=== PATIENT | female | born 1985 | race Caucasian/White ===

== ENCOUNTER 2023-03-04 19:56 | Emergency (ER) | payer OTHER ==
--- NOTE | 2023-03-04 20:10 | ERPHSYRPT ---
- History of Present Illness Time Seen by Provider: 03/04/23 20:09 Historian: patient Exam Limitations: no limitations Physician History: This is a 37-year-old white female patient of primary care provider Dr. Padilla and manager universal Dr. Jane. Patient is 30 weeks . She has no cardiac history and no pulmonary history. However, she had sudden, severe somewhat unrelenting substernal, central, nonradiating chest pain 2 hours prior to arrival. Patient's mother was just diagnosed with a pulmonary embolus. The mother found out she was factor V deficient. this patient has outpatient orders for Hegemann factor XII and factor V levels to be drawn. There is a concern for a pulmonary embolus. I did speak to the patient's manager universal, Dr. Jane. He stated that if it was necessary to perform a CAT scan of the chest with contrast then to go ahead and have that study performed. I informed the patient and her spouse that there are risks involved with this study but it is a risk-benefit issue. We need to be aware whether or not the patient is having a myocardial infarction or pulmonary embolus. Timing/Duration: today, hour(s) (Sudden onset severe chest pain unrelenting) Activities at Onset: none Quality: sharpness, stabbing Location: substernal, central Chest Pain Radiation: no radiation Severity of Pain-Max: moderate Severity of Pain-Current: moderate Associated Symptoms: denies symptoms, No shortness of breath Prior Chest Pain/Cardiac Workup: no prior chest pain, no prior cardiac workup Nitro Today/Relief: no nitro taken today Aspirin Treatment Today: no aspirin today Allergies/Adverse Reactions: No Known Drug Allergies Allergy (Unverified 02/26/23 10:52) Home Medications: Vit No.129/Iron/Folic [ Tablet] 1 each PO DAILY 01/23/23 [History] Vitamin E 268 mg PO DAILY 01/23/23 [History] Travel Risk - International Travel Have you traveled outside of the country in past 3 weeks: No - Coronavirus Screening Are you exhibiting any of the following symptoms?: No Close contact with a COVID-19 positive Pt in past 14-21 Days: No - Vaccine Status Have you recieved a Covid-19 vaccination: Yes Director Of Entertainment: Unknown - Vaccination Dates Dates if Unknown: uknown - Review of Systems Constitutional: No Symptoms Eyes: No Symptoms Ears, Nose, & Throat: No Symptoms Respiratory: No Symptoms Cardiac: Chest Pain Abdominal/Gastrointestinal: No Symptoms Genitourinary Symptoms: No Symptoms Musculoskeletal: Other (Left lower leg pain) Skin: No Symptoms Neurological: No Symptoms Psychological: No Symptoms Endocrine: No Symptoms Hematologic/Lymphatic: No Symptoms Immunological/Allergic: No Symptoms All Other Systems: Reviewed and Negative - Past Medical History Pertinent Past Medical History: Yes - Past Surgical History Past Surgical History: Yes - Social History Smoking Status: Never smoker - Nursing Vital Signs Nursing Vital Signs: Initial Vital Signs Temperature 97.8 F 03/04/23 20:00 Pulse Rate 73 03/04/23 20:00 Respiratory Rate 15 03/04/23 20:00 Blood Pressure 105/70 03/04/23 20:00 O2 Sat by Pulse Oximetry 99 03/04/23 20:00 Pain Scale Pain Intensity 3 - Physical Exam General Appearance: mild distress, alert, anxiety Eye Exam: PERRL/EOMI, eyes nml inspection Ears, Nose, Throat Exam: normal ENT inspection, moist mucous membranes Neck Exam: normal inspection, non-tender, supple, carotid bruit Respiratory Exam: normal breath sounds, chest tenderness, lungs clear, airway intact, No respiratory distress Cardiovascular Exam: regular rate/rhythm, normal heart sounds, normal peripheral pulses Gastrointestinal/Abdomen Exam: soft, normal bowel sounds, No tenderness Pelvic Exam: not done Rectal Exam: not done Back Exam: normal inspection, normal range of motion, No CVA tenderness, No vertebral tenderness Extremity Exam: normal inspection, normal range of motion, pelvis stable Neurologic Exam: alert, oriented x 3, cooperative, schedule maker II-XII nml as tested, normal mood/affect, nml cerebellar function, nml station & gait, sensation nml Skin Exam: normal color, warm, dry Lymphatic Exam: No adenopathy SpO2 Interpretation: normal O2 Delivery: Room Air - Course Nursing assessment & vital signs reviewed: Yes EKG Interpreted by Me: RATE (75), Sinus Rhythm, NORMAL AXIS, NORMAL INTERVALS, NORMAL QRS, NORMAL ST-T, Other (No acute ischemia on today's twelve-lead EKG) Ordered Tests: Active Orders 24 hr Category Date Time Status EKG-ER Only STAT Care 03/04/23 20:22 Active IV Insertion STAT Care 03/04/23 20:22 Active Pulse Oximetry (ED) STAT Care 03/04/23 20:22 Active CHEST WITH CONTRAST [CT] Stat Exams 03/04/23 20:23 Completed VENOUS UNILAT/LIMITED EXTREMIT [US] Stat Exams 03/04/23 21:28 Taken CBC W DIFF Stat Lab 03/04/23 20:30 Completed CMP Stat Lab 03/04/23 20:30 Completed D-DIMER QUANTITATIVE Stat Lab 03/04/23 20:30 Completed TROPONIN Q4H Lab 03/04/23 20:30 Completed TROPONIN Q4H Lab 03/05/23 00:30 Ordered TROPONIN Q4H Lab 03/05/23 04:30 Ordered UA W/RFX UR CULTURE Stat Lab 03/04/23 21:49 Completed Medication Summary Generic Name Dose Route Start Last Admin Trade Name Freq PRN Reason Stop Dose Admin Sodium Chloride 1,000 mls @ 100 mls/hr 03/04/23 20:30 03/04/23 20:39 Sodium Chloride 0.9% 1000 Ml IV 04/03/23 20:29 100 mls/hr .Q10H ANTONIA Administration Lab/Rad Data: Laboratory Result Diagrams 03/04/23 20:30 03/04/23 20:30 Laboratory Results 03/04/23 03/04/23 03/04/23 Range/Units 21:49 20:30 20:30 WBC (4.0-10.5) x10^3/uL RBC (4.1-5.4) x10^6/uL Hgb (12.0-16.0) g/dL Hct (35-47) % MCV (78-100) fL MCH (26-32) pg MCHC (32-36) g/dL RDW (11.5-14.0) % Plt Count (150-450) x10^3/uL MPV (7.5-11.0) fL Gran % (36.0-66.0) % Immature Gran % (Auto) (0.00-0.4) % Nucleat RBC Rel Count (0.00-0.1) % Eos # (Auto) (0-0.5) x10^3/uL Immature Gran # (Auto) (0.00-0.03) x10^3u/L Absolute Lymphs (auto) (1.0-4.6) x10^3/uL Absolute Monos (auto) (0.0-1.3) x10^3/uL Absolute Nucleated RBC (0.00-0.01) x10^3u/L Lymphocytes % (24.0-44.0) % Monocytes % (0.0-12.0) % Eosinophils % (0.00-5.0) % Basophils % (0.0-0.4) % Absolute Granulocytes (1.4-6.9) x10^3/uL Basophils # (0-0.4) x10^3/uL D-Dimer 1.06 H* (0.0-0.50) mg/L Sodium (137-145) mmol/L Potassium (3.5-5.1) mmol/L Chloride (98-107) mmol/L Carbon Dioxide (22-30) mmol/L Anion Gap (5-15) MEQ/L BUN (7-17) mg/dL Creatinine (0.52-1.04) mg/dL Estimated GFR ML/MIN Glucose (74-106) mg/dL Calcium (8.4-10.2) mg/dL Total Bilirubin (0.2-1.3) mg/dL AST (14-36) U/L ALT (0-35) U/L Alkaline Phosphatase (38-126) U/L Troponin I < 0.012 (0.000-0.034) ng/mL Serum Total Protein (6.3-8.2) g/dL Albumin (3.5-5.0) g/dL Urine Color Yellow (Yellow) Urine Appearance Clear (Clear) Urine pH 6.5 (4.6-8.0) Ur Specific [place] 1.010 (1.005-1.030) Urine Protein Negative (Negative) Urine Glucose (UA) Negative (Negative) mg/dL Urine Ketones Trace A (Negative) Urine Blood Negative (Negative) Urine Nitrite Negative (Negative) Urine Bilirubin Negative (Negative) Urine Urobilinogen 0.2 (0.2) mg/dL Ur Leukocyte Esterase Negative (Negative) U Hyaline Cast (Auto) NONE SEEN (0-2) /LPF Urine Microscopic RBC 0-2 (0-5) /HPF Urine Microscopic WBC 0-2 (0-5) /HPF Ur Epithelial Cells None Seen (None Seen) /HPF Urine Bacteria None Seen (None Seen) /HPF Urine Culture Reflexed NO (NO) 03/04/23 03/04/23 Range/Units 20:30 20:30 WBC 14.1 H (4.0-10.5) x10^3/uL RBC 3.94 L (4.1-5.4) x10^6/uL Hgb 10.2 L (12.0-16.0) g/dL Hct 33.3 L (35-47) % MCV 84.5 (78-100) fL MCH 25.9 L (26-32) pg MCHC 30.6 L (32-36) g/dL RDW 14.3 H (11.5-14.0) % Plt Count 297 (150-450) x10^3/uL MPV 8.7 (7.5-11.0) fL Gran % 71.7 H (36.0-66.0) % Immature Gran % (Auto) 0.7 H (0.00-0.4) % Nucleat RBC Rel Count 0.0 (0.00-0.1) % Eos # (Auto) 0.28 (0-0.5) x10^3/uL Immature Gran # (Auto) 0.10 H (0.00-0.03) x10^3u/L Absolute Lymphs (auto) 2.77 (1.0-4.6) x10^3/uL Absolute Monos (auto) 0.80 (0.0-1.3) x10^3/uL Absolute Nucleated RBC 0.00 (0.00-0.01) x10^3u/L Lymphocytes % 19.7 L (24.0-44.0) % Monocytes % 5.7 (0.0-12.0) % Eosinophils % 2.0 (0.00-5.0) % Basophils % 0.2 (0.0-0.4) % Absolute Granulocytes 10.09 H (1.4-6.9) x10^3/uL Basophils # 0.03 (0-0.4) x10^3/uL D-Dimer (0.0-0.50) mg/L Sodium 135 L (137-145) mmol/L Potassium 4.1 (3.5-5.1) mmol/L Chloride 104 (98-107) mmol/L Carbon Dioxide 20 L (22-30) mmol/L Anion Gap 14.7 (5-15) MEQ/L BUN 5 L (7-17) mg/dL Creatinine 0.43 L (0.52-1.04) mg/dL Estimated GFR > 60.0 ML/MIN Glucose 77 (74-106) mg/dL Calcium 8.2 L (8.4-10.2) mg/dL Total Bilirubin 0.50 (0.2-1.3) mg/dL AST 30 (14-36) U/L ALT 17 (0-35) U/L Alkaline Phosphatase 71 (38-126) U/L Troponin I (0.000-0.034) ng/mL Serum Total Protein 7.4 (6.3-8.2) g/dL Albumin 3.7 (3.5-5.0) g/dL Urine Color (Yellow) Urine Appearance (Clear) Urine pH (4.6-8.0) Ur Specific [place] (1.005-1.030) Urine Protein (Negative) Urine Glucose (UA) (Negative) mg/dL Urine Ketones (Negative) Urine Blood (Negative) Urine Nitrite (Negative) Urine Bilirubin (Negative) Urine Urobilinogen (0.2) mg/dL Ur Leukocyte Esterase (Negative) U Hyaline Cast (Auto) (0-2) /LPF Urine Microscopic RBC (0-5) /HPF Urine Microscopic WBC (0-5) /HPF Ur Epithelial Cells (None Seen) /HPF Urine Bacteria (None Seen) /HPF Urine Culture Reflexed (NO) - Progress Progress: improved, re-examined Air Movement: good Progress Note: 03/04/23 20:31 The risk of kidney injury and injury to baby and possible early delivery and possible complications with the delivery after the CT scan of the chest with contrast is very low. The benefit of the procedure is to determine if she has a pulmonary embolus or DVT we can treat this early. The patient and spouse have opted for CT scan of the chest with contrast. If the D-dimer is elevated we will also order venous Doppler of the left lower extremity. 03/04/23 22:38 Venous Doppler left lower extremity is negative for DVT. This impression was reported to me by the textile technologist. 03/05/23 00:01 CT scan of the chest with contrast shows no acute cardiopulmonary process. There is no acute thromboembolus. There is no evidence of infiltrate or pneumonia. This patient's medical issue is 1 of moderate complexity. The level of complexity and the work-up performed is based on the review of the patient's past medical history, review of the patient's medication list, review of the patient's drug allergy list, history of present illness and findings on examination. The intravenous line was placed, patient provided with normal saline solution, CBC CMP, twelve-lead EKG, urinalysis, troponin level and D- dimer levels were drawn. The patient had an elevated D-dimer level and we performed a venous Doppler which is negative for DVT in her left lower extremity. CTA of her chest is also negative for any acute cardiopulmonary process. Specifically there are no pneumonias and no pulmonary emboli. Patient will be discharged home with instructions to follow-up with her OB physician as well as her primary care provider. Blood Culture(s) Obtained: No Discussed with : Thomas Counseled pt/family regarding: lab results, diagnosis, rad results Medical Desision Making - Independent Historian Additional History obtained from: Spouse - Discussion of managment Agreed on:: Treatment plan, need for follow-up - Diagnostic Testing Diagnostic test were ordered, analyzed, and reviewed by me: Yes Radiological Interpretation: Reviewed by me, Teleradiologist Report - Risk of complications Minimal Risk: Minimal risk of morbidity - Departure Departure Disposition: Home Clinical Impression: Chest pain during Condition: Stable Critical Care Time: No Referrals: SHAUNA BELL DO [ACTIVE STAFF] - Follow up/PCP as directed Additional Instructions: Use Tylenol for pain control. Follow-up with your records supervisor and primary care provider later today on 03/05/2023 to make arrangements for further evaluation and management.
[2023-03-04] MEDS ORDERED: Sodium Chloride 0.9% 1000 ML 1,000 ML IV SCH (20:30)
[2023-03-04] MEDS ORDERED: Sodium Chloride 0.9% 1000 ML 1,000 ML ONE (20:38)
[2023-03-04 20:50] LABS: Absolute Neutrophil Ct (ANC) 10.09 x10^3/uL (1.4-6.9); BASOPHIL % 0.2 % (0.0-0.4); Basophil (Absolute #) 0.03 x10^3/uL (0-0.4); Eosinophil (Absolute #) 0.28 x10^3/uL (0-0.5); Hematocrit 33.3 % (35-47); Hemoglobin 10.2 g/dL (12.0-16.0); IMMATURE GRAN % 0.7 % (0.00-0.4); Lymphocyte (Absolute #) 2.77 x10^3/uL (1.0-4.6); Lymphocytes % 19.7 % (24.0-44.0); Mean Cell Volume 84.5 fL (78-100); Mean Corpuscular Hemoglobin 25.9 pg (26-32); Mean Corpuscular Hgb Concent. 30.6 g/dL (32-36); Mean Platelet Volume 8.7 fL (7.5-11.0); Monocytes % 5.7 % (0.0-12.0); Neutrophil % 71.7 % (36.0-66.0); Platelet Count 297 x10^3/uL (150-450); Red Blood Count 3.94 x10^6/uL (4.1-5.4); Red Cell Distribution Width 14.3 % (11.5-14.0); White Blood Count 14.1 x10^3/uL (4.0-10.5)
[2023-03-04 21:04] LABS: ALBUMIN 3.7 g/dL (3.5-5.0); ALKALINE PHOSPHATASE 71 U/L (38-126); ANION GAP 14.7 MEQ/L (5-15); BLOOD UREA NITROGEN 5 mg/dL (7-17); CHLORIDE 104 mmol/L (98-107); Calcium 8.2 mg/dL (8.4-10.2); Carbon Dioxide 20 mmol/L (22-30); Creatinine 1 0.43 mg/dL (0.52-1.04); EST GLOMERULAR FILTRATION RATE > 60.0 ML/MIN; Glucose 77 mg/dL (74-106); Potassium 4.1 mmol/L (3.5-5.1); SGOT/AST 30 U/L (14-36); SGPT/ALT 17 U/L (0-35); SODIUM 135 mmol/L (137-145); Total Protein 7.4 g/dL (6.3-8.2)
[2023-03-04 21:57] LABS: Appearance Clear (Clear); Bacteria None Seen /HPF (None Seen); Bilirubin Negative (Negative); Blood Negative (Negative); Epithelial Cells None Seen /HPF (None Seen); Glucose, Urine Negative (Negative); Hyaline Casts NONE SEEN /LPF (0-2); Ketones Trace (Negative); Leukocyte Esterase Negative (Negative); Nitrite Negative (Negative); Ph 6.5 (4.6-8.0); Protein,Urine Dip Negative (Negative); RBC 0-2 /HPF (0-5); Urobilinogen 0.2 mg/dL (0.2); WBC 0-2 /HPF (0-5)
[2023-03-04 22:07] LABS: ADD URINE CULTURE? NO (NO)
[2023-03-04 22:32] VITALS: O2SAT 97
--- NOTE | 2023-03-04 23:05 | XRAY ---
CLINICAL HISTORY:Chest pain; COMPARISON:None; TECHNIQUES:Contiguous 3.[address] images of the chest were acquired with administration of intravenous contrast. 80 cc Isovue 370 was given as IV contrast. Coronal and sagittal reconstructions were obtained. CTDI: 71.64 mGy, DLP: 853 mGy*cm; FINDINGS: The pulmonary trunk, right and left pulmonary arteries appear unremarkable. No evidence of filling defect in segmental or subsegmental branches on either side. The scanned pulmonary parenchyma shows no definite consolidative lesions. No free or encysted pleural effusion. Heart size is normal, and there is no pericardial effusion. No pathologically enlarged mediastinal, hilar or axillary lymph node identified. There is no definite mass lesion in the chest wall. Scanned upper abdomen is unremarkable. IMPRESSION: Negative study for acute thromboembolism. Electronically Signed by: Nj Peters MD. (03/04/2023 22:03:11 VIDEO GAMES STORYWRITER)
[2023-03-05 00:05] VITALS: BP 91/55; PULSE 78
--- NOTE | 2023-03-05 08:38 | XRAY ---
Indication: Pain. Elevated d-dimer. Two-dimensional sonogram and color Doppler imaging of the major venous vessels of the left leg performed. Comparison: None No thrombus seen in the examined deep venous vessels of the left leg including greater saphenous vein. Veins demonstrate normal compressibility. Venous waveforms are normal with and without augmentation. Impression: Left leg negative for DVT. Comment: Preliminary report was given.
[2023-03-07 08:01] LABS: Factor V Activity 97 % (70-150)
== END 2023-03-05 00:25 | disposition home or self-care (01) ==
LOC: ED 19:56
DX: R07.9 Chest pain, unspecified (principal); Z33.1 Pregnant state, incidental; Z83.2 Family history of diseases of the blood and blood-forming organs and certain disorders involving the immune mechanism; R79.1 Abnormal coagulation profile
CPT/HCPCS: 36000; 36415; 71260; 80053; 81001; 84484; 85025; 85220; 85280; 85335; 85379; 85610; 85730; 93005; 93971; 94760; 99284

== ENCOUNTER 2023-04-21 14:19 | Observation (INO) | payer OTHER ==
[2023-04-21 14:53] VITALS: BP 133/72; PULSE 78
[2023-04-21 15:39] LABS: Appearance Clear (Clear); Bacteria None Seen /HPF (None Seen); Bilirubin Negative (Negative); Blood Negative (Negative); Epithelial Cells None Seen /HPF (None Seen); Glucose, Urine Negative (Negative); Hyaline Casts NONE SEEN /LPF (0-2); Ketones Negative (Negative); Leukocyte Esterase Negative (Negative); Nitrite Negative (Negative); Ph 6.5 (4.6-8.0); Protein,Urine Dip Negative (Negative); RBC 0-2 /HPF (0-5); Urobilinogen 0.2 mg/dL (0.2); WBC 0-2 /HPF (0-5)
[2023-04-21 15:44] LABS: ADD URINE CULTURE? NO (NO)
[2023-04-21 15:47] LABS: Amphetamine,Urine NEGATIVE (NEGATIVE); Barbiturate,Urine NEGATIVE (NEGATIVE); Benzodiazepine,Urine NEGATIVE (NEGATIVE); Cocaine,Urine NEGATIVE (NEGATIVE); Methadone,Urine NEGATIVE (NEGATIVE); Opiate,Urine NEGATIVE (NEGATIVE); PCP,Urine NEGATIVE (NEGATIVE); THC,Urine NEGATIVE (NEGATIVE)
== END 2023-04-21 16:25 | disposition home or self-care (01) ==
LOC: OB 14:19
PROVIDERS: ADMIT Obstetrics & Gynecology; ATTEND Obstetrics & Gynecology
DX: Z34.83 Encounter for supervision of other normal pregnancy, third trimester (principal); Z3A.37 37 weeks gestation of pregnancy
CPT/HCPCS: 80307; 81001; 84112; G0378; G0379

== ENCOUNTER 2023-04-29 06:30 | Inpatient (IN) | payer OTHER ==
[2023-04-29] MEDS ORDERED: Zofran 4 MG/2 ML VIAL IV PRN (20:55)
[2023-04-29] MEDS ORDERED: STADOL 2 MG IV PRN (20:55)
[2023-04-29 21:27] LABS: Absolute Neutrophil Ct (ANC) 7.49 x10^3/uL (1.4-6.9); BASOPHIL % 0.2 % (0.0-0.4); Basophil (Absolute #) 0.02 x10^3/uL (0-0.4); Eosinophil % 1.5 % (0.00-5.0); Eosinophil (Absolute #) 0.16 x10^3/uL (0-0.5); Hematocrit 31.1 % (35-47); Hemoglobin 9.3 g/dL (12.0-16.0); IMMATURE GRAN # 0.07 x10^3u/L (0.00-0.03); IMMATURE GRAN % 0.7 % (0.00-0.4); Lymphocyte (Absolute #) 2.17 x10^3/uL (1.0-4.6); Lymphocytes % 20.7 % (24.0-44.0); Mean Cell Volume 77.2 fL (78-100); Mean Corpuscular Hemoglobin 23.1 pg (26-32); Mean Corpuscular Hgb Concent. 29.9 g/dL (32-36); Mean Platelet Volume 9.4 fL (7.5-11.0); Monocyte (Absolute #) 0.56 x10^3/uL (0.0-1.3); Monocytes % 5.3 % (0.0-12.0); Neutrophil % 71.6 % (36.0-66.0); Platelet Count 215 x10^3/uL (150-450); Red Blood Count 4.03 x10^6/uL (4.1-5.4); Red Cell Distribution Width 16.2 % (11.5-14.0); White Blood Count 10.5 x10^3/uL (4.0-10.5)
[2023-04-29 21:38] LABS: ADD URINE CULTURE? NO (NO); Appearance Clear (Clear); Bacteria None Seen /HPF (None Seen); Bilirubin Negative (Negative); Blood Negative (Negative); Epithelial Cells None Seen /HPF (None Seen); Glucose, Urine Negative (Negative); Hyaline Casts NONE SEEN /LPF (0-2); Ketones Negative (Negative); Leukocyte Esterase Negative (Negative); Nitrite Negative (Negative); Protein,Urine Dip Trace (Negative); RBC 0-2 /HPF (0-5); Urobilinogen 0.2 mg/dL (0.2); WBC 0-2 /HPF (0-5)
[2023-04-29 21:49] LABS: Amphetamine,Urine NEGATIVE (NEGATIVE); Barbiturate,Urine NEGATIVE (NEGATIVE); Benzodiazepine,Urine NEGATIVE (NEGATIVE); Cocaine,Urine NEGATIVE (NEGATIVE); Methadone,Urine NEGATIVE (NEGATIVE); Opiate,Urine NEGATIVE (NEGATIVE); PCP,Urine NEGATIVE (NEGATIVE); THC,Urine NEGATIVE (NEGATIVE)
[2023-04-29 22:16] LABS: ABO TYPING A; Antibody Screen NEGATIVE (NEGATIVE); RH TYPING POSITIVE
[2023-04-29] MEDS: CYTOTEC PO SCH (22:38)
[2023-04-30] MEDS: CYTOTEC PO SCH ×3 (00:32→04:32)
[2023-04-30] MEDS ORDERED: Lactated Ringers 1,000 ML IV SCH (06:00)
[2023-04-30] MEDS ORDERED: PITOCIN 30 UNITS/ LR 500 ML 30 UNITS/500 ML PLAST..BAG IV SCH ×2 (06:00→07:00)
[2023-04-30] MEDS ORDERED: FENTANYL 2 MCG-BUPIV 0.125%-NS 250 ML Epidur 250 ML EPIDURAL SCH (08:10)
[2023-04-30] MEDS ORDERED: XYLOCAINE 1% HCL 20 ML MDV IJ PRN (10:00)
[2023-04-30] MEDS ORDERED: Sodium Chloride 0.9% 1000 ML 1,000 ML ONE (10:39)
[2023-04-30] MEDS ORDERED: XYLOCAINE 2%/Epi 1:200000 20ML VIAL MPF ONE (10:50)
[2023-04-30] MEDS ORDERED: Zofran 4 MG/2 ML VIAL ONE ×2 (10:50→11:54)
[2023-04-30] MEDS ORDERED: PHENYLEPHRINE HCL ONE (10:50)
[2023-04-30] MEDS ORDERED: SUBLIMAZE 100 MCG/2 ML ONE ×2 (10:50→11:06)
[2023-04-30] MEDS ORDERED: CEFAZOLIN 2 GM-D5W BAG** 2 GM/50 ML ML IV ONE (10:50)
[2023-04-30] MEDS ORDERED: Pitocin 10 UNITS/ML ONE (11:06)
[2023-04-30] MEDS ORDERED: Astramorph-Pf 5 MG/10 ML ONE (11:07)
[2023-04-30] MEDS ORDERED: Versed 2 MG/2 ML Injection ONE (11:08)
[2023-04-30] MEDS ORDERED: Marcaine 0.5%/Epinephrine 10 ML ONE (11:12)
[2023-04-30] MEDS ORDERED: DEXMEDETOMIDINE 80 MCG/20ML-NS IV ONE (11:12)
[2023-04-30] MEDS ORDERED: Decadron 4 MG INJ ONE ×2 (11:12→11:20)
[2023-04-30] MEDS ORDERED: TORAdol 30 mg Injection ONE (11:12)
[2023-04-30] MEDS ORDERED: Compazine 10 MG/2 ML ONE (11:54)
[2023-04-30] MEDS ORDERED: LANSINOH 40 GM TOP PRN (12:10)
[2023-04-30] MEDS ORDERED: Mylicon 80MG PO PRN (12:10)
[2023-04-30] MEDS ORDERED: Narcan 0.4 MG/ML IV PRN (12:13)
[2023-04-30] MEDS ORDERED: BENADRYL 50 MG/ML IV PRN (12:13)
[2023-04-30] MEDS ORDERED: Nubain 10 MG/ML IV PRN (12:13)
[2023-04-30] MEDS ORDERED: PERCOCET TABLET 5/325MG PO PRN (12:13)
[2023-04-30] MEDS ORDERED: CLARITIN 10 MG PO PRN (12:13)
[2023-04-30] MEDS ORDERED: DEMEROL 50 MG IV PRN (12:13)
[2023-04-30] MEDS ORDERED: HOLD NARCOTIC ANALGESICS AND SEDATIVES X24 HR MC PRN (12:13)
[2023-04-30] MEDS ORDERED: MORPHINE SULFATE 2 MG INJ IV PRN (12:13)
[2023-04-30] MEDS: Dextrose 5%-Lr IV Solution 1000 ML 1,000 ML IV SCH ×2 (13:48→22:15)
[2023-04-30] MEDS ORDERED: CEFAZOLIN 2 GM-D5W BAG** 2 GM/50 ML ML IV SCH (20:00)
[2023-04-30] MEDS: Docusate Sodium 100 MG PO SCH (22:24)
[2023-04-30] MEDS ORDERED: Transderm Scop 1.5MG Patch TOP ONE (22:44)
[2023-04-30] MEDS ORDERED: Compazine 10 MG/2 ML IV PRN (22:57)
[2023-04-30] MEDS ORDERED: Phenergan 25 MG INJ*** 12.5 MG in Sodium Chloride 0.9% 100 ML IV SCH (23:15)
[2023-05-01 05:21] LABS: Absolute Neutrophil Ct (ANC) 14.06 x10^3/uL (1.4-6.9); BASOPHIL % 0.1 % (0.0-0.4); Basophil (Absolute #) 0.02 x10^3/uL (0-0.4); Eosinophil (Absolute #) 0 x10^3/uL (0-0.5); Hematocrit 27.7 % (35-47); Hemoglobin 8.1 g/dL (12.0-16.0); IMMATURE GRAN # 0.08 x10^3u/L (0.00-0.03); IMMATURE GRAN % 0.5 % (0.00-0.4); Lymphocyte (Absolute #) 1.55 x10^3/uL (1.0-4.6); Lymphocytes % 9.2 % (24.0-44.0); Mean Cell Volume 79.6 fL (78-100); Mean Corpuscular Hemoglobin 23.3 pg (26-32); Mean Corpuscular Hgb Concent. 29.2 g/dL (32-36); Mean Platelet Volume 9.5 fL (7.5-11.0); Monocyte (Absolute #) 1.05 x10^3/uL (0.0-1.3); Monocytes % 6.3 % (0.0-12.0); NUCLEATED RBC # 0.02 x10^3u/L (0.00-0.01); NUCLEATED RBC % 0.1 % (0.00-0.1); Neutrophil % 83.9 % (36.0-66.0); Platelet Count 209 x10^3/uL (150-450); Red Blood Count 3.48 x10^6/uL (4.1-5.4); Red Cell Distribution Width 16.5 % (11.5-14.0); White Blood Count 16.8 x10^3/uL (4.0-10.5)
[2023-05-01] MEDS: MOTRIN 400 MG PO PRN ×2 (08:11→18:21)
[2023-05-01] MEDS: Docusate Sodium 100 MG PO SCH ×2 (08:11→20:47)
[2023-05-01] MEDS: FERREX 150 PO SCH (08:11)
[2023-05-01] MEDS ORDERED: Adacel Vial IM ONE (10:00)
[2023-05-01] MEDS ORDERED: ENOXAPARIN SODIUM SQ SCH (10:00)
--- NOTE | 2023-05-01 10:36 | PCM.NOTE ---
Date and Time: 05/01/23 1031 Subjective Assessment: sp primary csection pod 1 pt admitted on april 29 at 38 3/7 wks gestation with noted incidental nuchal cord on recent sonogram and was noted having a favorable cervix upon admission. pt was started on cytotec on april 29 and april 30 had arom with iupc and electrode in place with subsequent noted repetitive deep variable decelerations. amnioinfusion started however pt remained completely dilated however -2 station. it was determined to proceed with csection and delivered live baby boy without complication and was noted having a nuchal cord as well as a true knot. pt currently resting in bed and doing well and incision intact with no drainage noted. vss afebrile abd; soft incison c/d/intact uterus; firm lochia; mild hgb; 8.1 a/p sp csection pod 1 will encourage ambulation will anticipate discharge home tomorrow OBJECTIVE DATA Vital Signs: Vital Signs - 24 hr Temp Pulse Resp BP BP Pulse Ox 05/01/23 10:00 99 05/01/23 09:00 97.6 F 73 16 114/58 99 05/01/23 08:00 99 05/01/23 07:00 98 05/01/23 03:00 98 05/01/23 02:00 96 05/01/23 01:00 97.9 F 58 L 20 121/64 98 05/01/23 00:00 97 04/30/23 23:00 98 04/30/23 22:00 98 04/30/23 21:00 98 04/30/23 20:00 97.9 F 72 18 125/58 97 04/30/23 19:00 94 L 04/30/23 14:30 97.9 F 61 15 93/57 98 04/30/23 13:30 65 16 92/50 97 04/30/23 13:15 57 L 15 89/54 99 04/30/23 13:00 57 L 17 85/52 99 04/30/23 12:45 97.7 F 62 15 90/50 94 L 04/30/23 10:52 18 132/56 100 04/30/23 10:45 83 18 132/56 100 Pain Assessment - Last Documented Pain Intensity [Bilateral 4 Anterior] Pain Intensity 5 Pain Scale Used 0-10 Pain Scale Intake and Output: Intake & Output 0604/29/23 04/30/23 05/01/23 11:59 11:59 11:59 11:59 Intake Total 1000 1500 Output Total 750 Balance 1000 750 Weight 90.718 kg Lab Results: Lab Results-Last 24 Hours 05/01/23 Range/Units 04:42 WBC 16.8 H (4.0-10.5) x10^3/uL RBC 3.48 L (4.1-5.4) x10^6/uL Hgb 8.1 L (12.0-16.0) g/dL Hct 27.7 L (35-47) % MCV 79.6 (78-100) fL MCH 23.3 L (26-32) pg MCHC 29.2 L (32-36) g/dL RDW 16.5 H (11.5-14.0) % Plt Count 209 (150-450) x10^3/uL MPV 9.5 (7.5-11.0) fL Gran % 83.9 H (36.0-66.0) % Immature Gran % (Auto) 0.5 H (0.00-0.4) % Nucleat RBC Rel Count 0.1 (0.00-0.1) % Eos # (Auto) 0 (0-0.5) x10^3/uL Immature Gran # (Auto) 0.08 H (0.00-0.03) x10^3u/L Absolute Lymphs (auto) 1.55 (1.0-4.6) x10^3/uL Absolute Monos (auto) 1.05 (0.0-1.3) x10^3/uL Absolute Nucleated RBC 0.02 H (0.00-0.01) x10^3u/L Lymphocytes % 9.2 L (24.0-44.0) % Monocytes % 6.3 (0.0-12.0) % Eosinophils % 0.0 (0.00-5.0) % Basophils % 0.1 (0.0-0.4) % Absolute Granulocytes 14.06 H (1.4-6.9) x10^3/uL Basophils # 0.02 (0-0.4) x10^3/uL Assessment/Plan (1) S/P primary low transverse Current Visit: Yes Status: Acute Code(s): Z98.891 - HISTORY OF UTERINE SCAR FROM PREVIOUS SURGERY (2) Umbilical cord, true knot Current Visit: Yes Status: Acute Code(s): O69.2XX0 - LABOR AND DEL COMP BY OTH CORD ENTANGLE, W COMPRSN, UNSP (3) Nuchal cord affecting delivery Current Visit: Yes Status: Acute Code(s): O69.81X0 - LABOR AND DEL COMP BY CORD AROUND NECK, W/O COMPRSN, UNSP
[2023-05-01] MEDS ORDERED: NORCO 5/325 MG PO PRN (12:00)
--- NOTE | 2023-05-01 14:05 | OP ---
SURGERY DATE/TIME: 04/30/2023 1103 PREOPERATIVE DIAGNOSIS: Intrauterine at 38 weeks and 4 days gestation with repetitive variable decelerations, nonreassuring heart rate tracing with a known incidental nuchal cord. POSTOPERATIVE DIAGNOSIS: Intrauterine at 38 weeks and 4 days gestation with repetitive variable decelerations, nonreassuring heart rate tracing with a known incidental nuchal cord with a true knot. PROCEDURE: Primary section, low flap transverse uterine incision, Pfannenstiel skin incision. SURGEON: Basilio Jane D.O. TRAY SETTER: Shayy Pena, surgical technicians. ANESTHESIA: Epidural. QUANTITATIVE BLOOD LOSS: 546 cc. COMPLICATIONS: None. INDICATIONS: The risks, benefits, indications and alternatives of the procedure were reviewed with the patient prior to procedure. The patient understood the risk of infection, bleeding, bowel injury, bladder injury, incisional hernia, pelvic infection and thromboembolic disorder associated with the surgery and desires to have this surgery as a possible means to alleviate her current medical condition. DESCRIPTION OF PROCEDURE AND FINDINGS: At this point the patient is taken to the operating room where her epidural anesthesia was found to be adequate. She was then prepared and draped in normal sterile fashion in the dorsal supine position with leftward tilt. A Pfannenstiel skin incision is made with a scalpel and carried through to the underlying layer of the fascia with a Bovie. The fascia was then incised in the midline and the incision extended laterally with Elmore scissors. The superior aspect of the fascial incision was then grasped Shweta clamps elevated and the underlying rectus muscles dissected off bluntly. Attention is then turned to the inferior aspect of this incision which in similar fashion was grasped, tented up with Shweta clamps and the rectus muscles dissected off bluntly. The rectus muscles were then in the midline and the peritoneum identified, tented up and entered sharply with Metzenbaum scissors. The peritoneal incision was then extended superiorly and inferiorly with good visualization of the bladder. The bladder blade was then inserted and vesicouterine peritoneum identified, grasped with pickups and entered sharply with Metzenbaum scissors. This incision was then extended laterally and bladder flap created digitally. The bladder blade was reinserted and the lower uterine segment incised in transverse fashion with a scalpel. The uterine incision was then extended laterally with bandage scissors. The bladder blade was then removed and the infant's head was delivered atraumatically and was noted to have nuchal cord x1 which was reduced and a true knot upon delivery. The nose and mouth were suctioned with bulb suction and the cord clamped and cut. The was then handed off to the awaiting nurses. The placenta was then removed manually. The uterus exteriorized and cleared of all clots and debris. The uterine incision was repaired with 1-0 chromic in a running locked fashion. A second layer of the same suture was used to obtain excellent hemostasis. From this point the uterus is returned to the abdomen and the gutters were cleared of clots and the peritoneal muscles were closed in interrupted fashion using 2-0 chromic suture. The fascia was re-approximated with 0 Vicryl in a running fashion. The subcutaneous layer was closed with 3-0 Vicryl suture and the skin was closed with absorbable zachary called INSORB. The patient tolerated the procedure well. Sponge, lap, needle and instrument counts were correct x2. The patient was then taken to the recovery room in stable condition. The patient delivered a live baby boy at 1104 hours.
[2023-05-01] MEDS: TYLENOL EXTRA STRENGTH 500 MG PO PRN (20:47)
[2023-05-02] MEDS: MOTRIN 400 MG PO PRN ×2 (01:37→10:57)
[2023-05-02 01:51] VITALS: O2SAT 95
[2023-05-02] MEDS: TYLENOL EXTRA STRENGTH 500 MG PO PRN ×2 (05:28→13:13)
[2023-05-02] MEDS: FERREX 150 PO SCH (10:58)
[2023-05-02] MEDS: Docusate Sodium 100 MG PO SCH (10:58)
--- NOTE | 2023-05-02 11:03 | PCM.NOTE ---
Date and Time: 05/02/23 1102 Subjective Assessment: pod 2 sp csection pt resting in bed able to ambulate and tolerate diet. vss afebrile abd; soft incision c/d/intact uterus; firm lochia; mild hgb; 8.1 ap sp csection pod 2 dc home today should fu in office in 2 wks OBJECTIVE DATA Vital Signs: Vital Signs - 24 hr Temp Pulse Resp BP Pulse Ox 05/02/23 01:48 97.6 F 72 20 110/59 95 05/01/23 20:00 99.0 F 77 20 103/53 96 05/01/23 15:00 98.7 F 72 18 117/59 100 05/01/23 14:00 99 05/01/23 12:00 99 Pain Assessment - Last Documented Pain Intensity [Bilateral 6 Anterior] Pain Intensity 5 Pain Scale Used 0-10 Pain Scale Intake and Output: Intake & Output 04/29/23 04/30/23 05/01/23 05/02/23 11:59 11:59 11:59 11:59 Intake Total 1000 1500 2300 Output Total 750 Balance 9693 721 8404 Weight 90.718 kg Assessment/Plan (1) S/P primary low transverse Current Visit: Yes Status: Acute Code(s): Z98.891 - HISTORY OF UTERINE SCAR FROM PREVIOUS SURGERY (2) Umbilical cord, true knot Current Visit: Yes Status: Acute Code(s): O69.2XX0 - LABOR AND DEL COMP BY OTH CORD ENTANGLE, W COMPRSN, UNSP (3) Nuchal cord affecting delivery Current Visit: Yes Status: Acute Code(s): O69.81X0 - LABOR AND DEL COMP BY CORD AROUND NECK, W/O COMPRSN, UNSP (4) Postoperative anemia Current Visit: Yes Status: Acute Code(s): D64.9 - ANEMIA, UNSPECIFIED
--- NOTE | 2023-05-02 11:24 | PCM.DS ---
Discharge Summary Date of Admission: 04/30/23 06:30 Admitting Physician: JACQUELINE DUTTON DO Consults: Consults on Case 04/30/23 12:13 Notify Anesthesia Provider PRN 04/30/23 16:29 Navigation ONCE Primary Care Provider: NO FAMILY DOCTOR Allergies Allergies No Known Drug Allergies Allergy (Verified 04/21/23 15:08) Hospital Summary - Hospital Course Hospital Course: pt admitted on april 29 at 38 3/7 wks gestation for induction secondary to incidental nuchal cord found on recent sonogram where pt currently had a favorable cervix. pt was admitted placed on cytotec on april 29 with subsequent pitocin on april 30 and went completely dilated after having placed iupc and electrode. pt was noted having deep repetitive variable decelerations not relieved with amnioinfusion. pt was then taken for csection and delivered live baby boy without complication and was noted having nuchal cord x 1 with a true k not. during postop period did well was able to ambulate and tolerate diet. hgb stable at 8.1 and incision c/d/intact. pt at this time advised to fu in office in 2 wks and all questions answered to her satisfaction. - Vitals & Intake/Output Vital Signs: Vital Signs Temperature 97.6 F 05/02/23 01:48 Pulse Rate 72 05/02/23 01:48 Respiratory Rate 20 05/02/23 01:48 Blood Pressure 110/59 05/02/23 01:48 O2 Sat by Pulse Oximetry 95 05/02/23 01:48 Intake & Output: Intake & Output 04/29/23 04/30/23 05/01/23 05/02/23 11:59 11:59 11:59 11:59 Intake Total 1000 1500 2300 Output Total 750 Balance 6176 303 1861 Weight 90.718 kg - Lab Result Diagrams: 05/01/23 04:42 - Procedures and Test Procedures and Tests throughout Hospitalization: Therapy Orders & Screens 04/30/23 11:35 Standby STAT Comment: Final Diagnosis/Problem List - Final Discharge Diagnosis/Problem (1) S/P primary low transverse Current Visit: Yes Status: Acute Code(s): Z98.891 - HISTORY OF UTERINE SCAR FROM PREVIOUS SURGERY (2) Umbilical cord, true knot Current Visit: Yes Status: Acute Code(s): O69.2XX0 - LABOR AND DEL COMP BY OT CORD ENTANGLE, W COMPRSN, UNSP (3) Nuchal cord affecting delivery Current Visit: Yes Status: Acute Code(s): O69.81X0 - LABOR AND DEL COMP BY CORD AROUND NECK, W/O COMPRSN, UNSP (4) Postoperative anemia Current Visit: Yes Status: Acute Code(s): D64.9 - ANEMIA, UNSPECIFIED - Discharge Disposition: Home, Self-Care Condition: Stable Prescriptions: New Oxycodone HCl/Acetaminophen [Oxycodone-Acetaminophen 5-325] 1 each PO Q6HPRN PRN #20 tablet MDD 4 PRN Reason: Pain No Action Vit No.129/Iron/Folic [ Tablet] 1 each PO DAILY Vitamin E 268 mg PO DAILY Follow up with: DOCTOR,NO FAMILY [Primary Care Provider] - JACQUELINE DUTTON DO [ACTIVE STAFF] - 2 weeks (keep incision clean and dry should fu in office in 2 wks)
[2023-05-02 15:58] VITALS: BP 107/53; PULSE 78
== END 2023-05-02 13:30 | disposition home or self-care (01) | DRG 788 ==
LOC: OB 06:30 → OBSVTOIN 04-30 06:30
PROVIDERS: ADMIT Obstetrics & Gynecology; ATTEND Obstetrics & Gynecology
PROC: 10D00Z1 Extraction of Products of Conception, Low, Open Approach (ICD-10-PCS; principal; 2023-04-30)
DX: O69.1XX0 Labor and delivery complicated by cord around neck, with compression, not applicable or unspecified (principal); O36.8330 Maternal care for abnormalities of the fetal heart rate or rhythm, third trimester, not applicable or unspecified; Z3A.38 38 weeks gestation of pregnancy; Z37.0 Single live birth; D64.9 Anemia, unspecified; Z20.828 Contact with and (suspected) exposure to other viral communicable diseases; Z98.891 History of uterine scar from previous surgery
CPT/HCPCS: 36415; 59025; 59426; 64488; 76937; 76942; 80307; 81001; 81002; 85025; 86850; 86900; 86901; 90471; 90715; 94799; 99213; G0378; J0690; J1100; J1650; J1885; J2250; J2274; J2370; J2405; J2590; J3010; A9270-GY

== ENCOUNTER 2023-06-25 06:34 | Day surgery (SDC) | payer OTHER ==
[2023-06-25] MEDS ORDERED: Sensorcaine 0.25% 10 ML ONE (06:51)
[2023-06-25 06:59] LABS: HCG URINE TEST NEGATIVE (NEGATIVE)
[2023-06-25] MEDS ORDERED: CEFAZOLIN 2 GM-D5W BAG** 2 GM/50 ML ML IV SCH (07:00)
[2023-06-25 07:16] VITALS: RESP 16
[2023-06-25] MEDS ORDERED: CEFAZOLIN 2 GM-D5W BAG** 2 GM/50 ML ML IV ONE (07:18)
[2023-06-25] MEDS ORDERED: Lactated Ringers 1,000 ML IV ONE ×2 (07:19→11:49)
[2023-06-25] MEDS: Lactated Ringers 1,000 ML IV SCH ×2 (07:22→11:49)
[2023-06-25] MEDS ORDERED: Transderm Scop 1.5MG Patch TOP PRN (08:00)
[2023-06-25] MEDS ORDERED: Transderm Scop 1.5MG Patch ONE (08:01)
[2023-06-25] MEDS ORDERED: TORAdol 30 mg Injection ONE ×2 (08:13→11:43)
[2023-06-25] MEDS ORDERED: Zemuron 100 MG/10 ML ONE (08:13)
[2023-06-25] MEDS ORDERED: Zofran 4 MG/2 ML VIAL ONE ×2 (08:13→09:49)
[2023-06-25] MEDS ORDERED: SUBLIMAZE 100 MCG/2 ML ONE ×2 (08:13→09:32)
[2023-06-25] MEDS ORDERED: Decadron 4 MG INJ ONE (08:13)
[2023-06-25] MEDS ORDERED: BRIDION 200MG/2ML IV ONE (08:13)
[2023-06-25] MEDS ORDERED: Xylocaine-Mpf 2% 5 Ml Vial ONE (08:13)
[2023-06-25] MEDS ORDERED: DIPRIVAN 200 MG/20 ML IV ONE (08:13)
[2023-06-25] MEDS ORDERED: OFIRMEV 100 ML IV ONE (08:19)
[2023-06-25] MEDS ORDERED: DEMEROL 50 MG ONE (09:18)
[2023-06-25] MEDS ORDERED: Hydromorphone 1 mg/ml Injection ONE (09:24)
[2023-06-25] MEDS ORDERED: Compazine 10 MG/2 ML ONE (11:00)
[2023-06-25] MEDS: Compazine 10 MG/2 ML IV ONE ×2 (11:05→11:45)
[2023-06-25] MEDS ORDERED: TORAdol 30 mg Injection IV PRN (11:38)
[2023-06-25] MEDS ORDERED: Compazine 10 MG/2 ML IV ONE (11:45)
[2023-06-25 15:58] VITALS: BP 117/82; PULSE 63; TEMP 97.8; O2SAT 97
--- NOTE | 2023-06-26 10:06 | OP ---
SURGERY DATE: 06/25/2023 SURGERY TIME: 826 PREOPERATIVE DIAGNOSIS: 1. MULTIPARITY DESIRING TUBAL STERILIZATION. 2. CONTRACEPTIVE COUNSELING. POSTOPERATIVE DIAGNOSIS: 1. MULTIPARITY DESIRING TUBAL STERILIZATION. 2. CONTRACEPTIVE COUNSELING. PROCEDURE: 1. Laparoscopic tubal sterilization via Falope ring application. SURGEON: Basilio Jane D.O. UPSETTING MACHINE OPERATOR: gagan Castillo. ANESTHESIA: General. ESTIMATED BLOOD LOSS: Minimal. COMPLICATIONS: None. INDICATIONS: The risks, benefits, indications and alternatives of the procedure were reviewed with the patient prior to the procedure. The patient understood the risk of infection, bleeding, bowel injury, bladder injury, ureteral injury, uterine perforation, pelvic infection, and thromboembolic disorder associated with the surgery and desired to have the surgery as a possible means to alleviate her current medical condition. All other forms of control have been discussed with the patient and desires to have this form of control as a means to alleviate her situation. DESCRIPTION OF PROCEDURE AND FINDINGS: At this point the patient was taken to the operating room, given general sedation, placed in the dorsal lithotomy position. Prepped and draped in the usual sterile fashion. A weighted speculum was then placed in the patient's vagina and the anterior lip of the cervix was grasped with a single tooth tenaculum. After this, a uterine manipulator was then inserted in through the endocervical region as a means to manipulate and elevate the uterus. Attention was then turned to the patient's abdomen where a 5 mm skin incision was made in the umbilical fold. A 5 mm trocar and sleeve were advanced under direct visualization where pneumoperitoneum was obtained with 4 liters of CO2 gas. A survey of the patient's pelvis and abdomen revealed entirely normal anatomy. An additional incision was made 2 cm left of the symphysis pubis where an 8 mm incision was made. 8 mm trocar and sleeve were advanced under direct visualization. From this point, the uterus was elevated. The Falope ring applicator was taken through the port and the Falope ring applicator was placed on the isthmic of the left fallopian tube where a good knuckle of tube was grasped on the isthmic region and the Falope ring was displaced on the tube without complication. Good hemostasis was obtained. The Falope ring applicator was rerouted and the same procedure was performed on the right fallopian tube where it was identified on the isthmic region and where a good knuckle of tube was grasped with the Falope ring applicator and the Falope ring was displaced on its side without complication. Hemostasis was obtained. There was good application of the Falope rings on either side of the tube and hemostasis was obtained. A survey of the patient's pelvis revealed entirely normal anatomy with no gross abnormalities. From this point, all instruments were removed from the patient's abdomen and the incisions were closed with 4-0 Monocryl suture. From this point, the patient was then taken out of the dorsal lithotomy position, was taken out of anesthesia, and was then taken to the recovery room in stable condition. All instruments and Laps were accounted for X 2.
== END 2023-06-25 13:15 | disposition home or self-care (01) ==
LOC: SDC 06:34
PROVIDERS: ATTEND Obstetrics & Gynecology
DX: Z30.2 Encounter for sterilization (principal)
CPT/HCPCS: 81025; 87086; J0690; J1100; J1170; J1885; J2175; J2405; J2704; J3010; A9270-GY